=== PATIENT | male | born 1995 | race Caucasian/White ===

== ENCOUNTER 2019-09-21 21:46 | Emergency (ER) | payer OTHER ==
[2019-09-21] MEDS ORDERED: Ondansetron 4 MG Tab.DIS PO ONE (22:08)
[2019-09-21] MEDS ORDERED: Sodium Chloride 0.9% 1,000 ML IV ONE (22:10)
[2019-09-21] MEDS ORDERED: Acetaminophen 325 MG Tab PO ONE (22:59)
[2019-09-21] MEDS ORDERED: Acetaminophen 325 MG Tab ONE (23:09)
--- NOTE | 2019-09-21 23:36 | ER ---
HISTORY OF PRESENT ILLNESS: A 24-year-old male who comes in with his father with complaints of nausea and vomiting that started on . He states he vomited once on and then yesterday he took it very easy and things seemed like it was getting slowly better. Today, he tried to return to normal eating and drinking and he has vomited several times this afternoon. The patient feels some weakness and thinks he is dehydrated. He has had a few episodes of diarrhea. The patient does not feel like he has been running much of a fever. No problems with coughing, shortness of breath, or wheezing. OBJECTIVE: GENERAL APPEARANCE: The patient is awake and alert, slightly pale in nature. No respiratory distress. VITAL SIGNS: Reviewed. He is afebrile. Blood pressure 138/85, respirations 18. EARS: TMs are dull. Nares are patent. Oral mucous membranes are slightly dry. Tonsils are not enlarged or injected. Pharynx not inflamed. NECK: Supple. LUNGS: Clear. ABDOMEN: Soft. Bowel sounds are present and active. There is mild diffuse tenderness with palpation without guarding. INITIAL TREATMENT: Zofran 4 mg was given sublingual. LABORATORY DATA: Include a CBC showing a normal white count. CMP is normal. DIAGNOSIS: Gastroenteritis. TREATMENT PLAN: Normal saline 1 L was given IV. After this, the patient will be discharged. He is to take fluids in small frequent drinks, starting with water. When the liquid goes in well without any nausea or vomiting, he can start with a BRAT diet again using a soft bland food and not eating much at one time. Activity should be as tolerated. Followup is p.r.nKalia NEWMAN/[email or web address] /[id number]
== END 2019-09-21 23:35 | disposition home or self-care (01) ==
LOC: LB.ED 21:46
DX: K52.9 Noninfective gastroenteritis and colitis, unspecified (principal)
CPT/HCPCS: 36415; 80053; 85025; 96360; 99284-25; A9270-GY; J7030